=== PATIENT | female | born 1970 | race Caucasian/White ===

== ENCOUNTER → 2018-05-16 | Outpatient (CLI) | payer BC | LOC: MC.RAD 08:31 | DX: Z12.31 Encounter for screening mammogram for malignant neoplasm of breast (principal); N64.89 Other specified disorders of breast ==

== ENCOUNTER → 2018-05-27 | Outpatient (CLI) | payer BC | LOC: MC.RAD 13:00 | DX: N60.01 Solitary cyst of right breast (principal); N64.89 Other specified disorders of breast ==

== ENCOUNTER → 2019-08-02 | Outpatient (CLI) | payer BC | LOC: MC.RAD 17:26 | DX: Z12.31 Encounter for screening mammogram for malignant neoplasm of breast (principal) ==

== ENCOUNTER → 2020-08-06 | Outpatient (CLI) | payer BC | LOC: MC.RAD 17:00 | DX: Z12.31 Encounter for screening mammogram for malignant neoplasm of breast (principal) ==

== ENCOUNTER → 2022-06-15 | Outpatient (CLI) | payer BC | LOC: MC.RAD 08:28 | DX: Z12.31 Encounter for screening mammogram for malignant neoplasm of breast (principal) ==